=== PATIENT | female | born 1935 | race Caucasian/White ===

== ENCOUNTER 2020-08-27 12:40 | Emergency (ER) | payer OTHER, MEDICARE ==
--- OUTSIDE RECORDS SUMMARY | 2020-08-27 12:42 | XMS REPORT | Clinical Summary ---
:1935 Author Organization [facility] Address [address] [place] [id number] Care Team Providers Name Role Phone Crystal Albright PERSONAL LINES INSURANCE ADVISOR-C Primary Care Provider Allergies No Known Active Allergies Medications Medication Sig Dispensed Refills Start Date End Date Status PARoxetine (PAXIL) 10 0 01/20/2016 Active MG tablet galantamine (RAZADYNE) 0 12/21/2015 Active 12 MG tablet simvastatin (ZOCOR) 20 Take 20 mg by 0 Active MG tablet mouth nightly. lisinopril Take 20 mg by 0 Activ e (PRINIVIL,ZESTRIL) 20 mouth daily. MG tablet Active Problems Not on file Surgical History Surgery Date Site/Laterality Comments COLONOSCOPY 2014 HYSTERECTOMY BACK SURGERY KNEE SURGERY Medical History Medical History Date Comments Hypertension Hyperlipidemia Depressed Hearing difficulty Dementia (HCC) Rectal cancer (HCC) Social History Tobacco Use Types Packs/Day Years Used Date Never Smoker Alcohol Use Drinks/Week oz/Week Comments Yes 1 Glasses of wine 1.0 monthly Sex Assigned at Date Recorded Not on file Last Filed Vital Signs Not on file Plan of Treatment Health Maintenance Due Date Last Done Comments COVID-19 VACCINE (1 of 2) 1950 SHINGLES VACCINES (#1) 1984 65+ PNEUMOCOCCAL VACCINE (1 of 1 - PPSV23) 1999 INFLUENZA VACCINE 03/05/2020 Results Not on fileafter 08/27/2019 Insurance Payer Benefit Plan / Subscriber ID Effective Dates Phone Addre ss Type Group MEDICARE MEDICARE PART A [id number] 1999-Present DARLENE ALEGRE Medicare AND B AARP AARP SUPPLEMENT [id number] 1999-Present Commercial Advance Directives For more information, please contact: [phone] Type Date Recorded Patient Fabricating Machine Operator Explanati on Advance Directives, Living Will 04/29/2020 4:53 PM and Medical Power of Director Educational Radio
--- OUTSIDE RECORDS SUMMARY | 2020-08-27 12:43 | XMS REPORT | Continuity of Care Document ---
:1935 Author Organization [facility] t Address [address] [place] [address] Care Team Providers Name Role Phone Natalee Crystal SIMPSON Primary Care Physician Problems Condition Condition Condition Status Onset Resolution Last Treating Co mments Source Name Details Category Date Date Treatment Clinician Date Depression Depression Problem Active [facility] Hyperlipid Hyperlipid Problem Active [facility] HTN HTN Problem Active [facility]hypert[facility]hypertens Alexa kes - ion) ion) [facility] Osteopenia Osteopenia Problem Active [facility] Memory Memory Problem Active [facility] deficits deficits [facility] Allergies, Adverse Reactions, Alerts This patient has no known allergies or adverse reactions. Social History Social Habit Start Date Stop Date Quantity Comments Source Sex Assigned At [facility] ethodi Alcohol intake 2016-03-06 2016-03-06 Current drinker [place] [facility] 00:00:00 00:00:00 of alcohol (finding) Alcohol Comment 2016-03-06 2016-03-06 monthly [facility] ethodist 00:00:00 00:00:00 Smoking Status Start Date Stop Date Source Never smoker [facility] Medications Ordered Filled Start Stop Current Ordering Indication Dosage Frequency Signature Comments Components Source Medication Medication Date Date Medication? Clinician (SIG) Name Name Lisinopril Lisinopril 2017-08 Yes Allie Albright [address] [facility]12 [facility] Multivitami Multivitami 2017-08 Yes Allie Albright as [facility] Adult n Adult 0-12 directed [facility] Alprazolam Alprazolam 2017-08 Yes Allie Durham [address] [facility] Vitamin D-3 Vitamin D-3 2017-08 Yes Allie Durham [address] [facility] 0[facility]12 [facility] Galantamine Galantamine 2017-08 Yes Allie Durham [address] [facility] Hydrobromid Hydrobromid 0-12 with meals [facility] Simvastatin Simvastatin 2017-08 Yes Allie Trinhok [address] [facility] 0-12 in the [facility] evening [facility] Sulfasalazi Sulfasalazi 2017-08 Yes Allie Albright [address] [facility] ne ne 0-12 [facility] Tramadol Tramadol 2017-08 Yes Allie Albright [address] [facility] HCl HCl 0-12 as needed [facility] simvastatin Yes 20mg QD Take 20 mg [place] (ZOCOR) 20 802 by mouth Metho di MG tablet 13:58: nightly. st 15 lisinopril Yes 20mg QD Take 20 mg [place] (PRINIVIL,Z 8-02 by mouth Meth gladis ESTRIL) 20 13:58: daily. st MG tablet 15 PARoxetine Yes [place] (PAXIL) 10 6-17 [facility] MG tablet 00:00: st 00 galantamine Yes [place] (RAZADYNE) 5-18 [facility] 12 MG 00:00: st tablet 00 Cephalexin Cephalexin Yes Allie Albright TK [address] [facility] Q 8 HOURS [facility] FOR 10 [facility] l [facility] Divalproex Divalproex Yes Allie Albright as [facility] Sodium Sodium directed [facility] Acetaminoph Acetaminoph Yes Allie Albright (Schedule [facility] en-Codeine en-Codeine III Drug) [facility] - #3 #3 TK 2 TS PO [facility] Q 6 HOURS l NEEDED Outpati FOR PAIN ent Clinics Procedures This patient has no known procedures. Plan of Care Planned Activity Planned Date Details Comments Source Future Scheduled 2020-03-05 INFLUENZA VACCINE [place] [facility] 00:00:00 [code = INFLUENZA VACCINE] Future Scheduled 1999 65+ PNEUMOCOCCAL [place] [facility] 00:00:00 VACCINE (1 of 1 - PPSV23) [code = 65+ PNEUMOCOCCAL VACCINE (1 of 1 - PPSV23)] Future Scheduled 1984 [facility] [code = SHINGLES VACCINES (#1)] Future Scheduled 1950 COVID-19 VACCINE (1 of [place] [facility] 00:00:00 2) [code = COVID-19 VACCINE (1 of 2)] Encounters Start End Encounter Admission Attending Care Care Encounter Source Date/Time Date/Time Type Type Clinicians Facility Department ID 2018-05-16 2018-05-16 Outpatient [facility] Adant [id number] [facility] 10[facility]00[facility]00 10[facility]00[facility]00 [facility] Medicine Outpati ent Clinics Results This patient has no known results.
[2020-08-27 13:23] LABS: Absolute Lymphocytes (CBC) 1.7 K/uL (0.7-4.9); Basophils % 0.5 % (0-1.3); Lymphocytes % 29.2 % (15.3-44.8); MPV 7.6 fL (7.6-11.3); RBC Red Blood Cell Count 4.14 M/uL (3.86-4.86)
[2020-08-27 13:34] LABS: BUN Blood Urea Nitrogen 13 mg/dL (7-18); Bicarbonate 29 mmol/L (21-32); Glucose Level 102 mg/dL (74-106); Magnesium 2.3 mg/dL (1.8-2.4); NT PRO-BNP 104 pg/mL (<450); Potassium 3.9 mmol/L (3.5-5.1); Sodium Level 143 mmol/L (136-145); Troponin (Emerg Dept Use Only) < 0.02 ng/mL (0.0-0.045)
--- NOTE | 2020-08-27 13:51 | RAD REPORT ---
EXAM DESCRIPTION: Mimi Single View08/27/2020 1:27 pm CLINICAL HISTORY: Shortness of breath COMPARISON: 2017 FINDINGS: Mild bilateral pulmonary opacities. Heart is upper limits normal size. Patient is in a poo r degree of inspiration IMPRESSION: Mild bilateral interstitial pulmonary opacities may represent mild interstitial pulmonar y edema
[2020-08-27 14:09] LABS: SARS-COV-2 RT PCR NEGATIVE (NEGATIVE)
--- NOTE | 2020-08-27 14:37 | RAD REPORT ---
EXAM DESCRIPTION: CT - Chest For Pe Angio - 08/27/2020 2:17 pm CLINICAL HISTORY: sob COMPARISON: 2016 TECHNIQUE: Dynamically enhanced axial 3 mm thick images of the chest were obtained during administra tion of <100> mL Isovue 370 IV contrast. Coronal and oblique reconstruction images were generated and reviewed. Exam utilizes a protocol for optimal evaluation of pulmonary arterial tree. Maximum intensity projections 3D imaging was utilized All CT scans are performed using dose optimization technique as appropriate and may include automated exposure control or mA/KV adjustment according to patient size. FINDINGS: A pulmonary embolus is not seen. A thoracic aortic aneurysm is not noted. A pleural effusion is not seen. A pericardial effusion is not seen. A lung consolidation is not present. IMPRESSION: Negative for a pulmonary embolism.
--- NOTE | 2020-08-27 15:32 | EDPHYS ---
Physician Documentation [facility] Name: Rosina Lin Age: 84 yrs Sex: Female : 1935 Arrival Date: 08/27/2020 Time: 12:45 Bed 24 Private MD: ED Physician Jey Klein HPI: 08/27 13:12 This 84 yrs old Female presents to ER via EMS with complaints of Breathing rn Difficulty. 13:12 The patient has shortness of breath at rest. Onset: The symptoms/episode began/occurred rn just prior to arrival. Duration: The symptoms single episode. The patient's shortness of breath is aggravated by nothing, is alleviated by nebulizer treatment. Associated signs and symptoms: Pertinent positives: This patient does not have any pertinent positive signs or symptoms associated with shortness of breath. Pertinent negatives: chest pain, non-productive cough, productive cough, diaphoresis, dizziness, fever, hemoptysis, loss of consciousness, vomiting. Severity of symptoms: At their worst the symptoms were moderate in the emergency department the symptoms have resolved. The patient has not experienced similar symptoms in the past. Reports assisted living facility, thinks was working on puzzle or something, began to feel like couldn't take a deep breath, called for help, EMS arrived and was tachypneic, tachycardic, shallow breathing, given albuterol for shallow breathing, and by time arrived here, symptoms had resolved. Pt denies chest pain. Does not know what happened. Currently asymptomatic. Denies recent illness/cough/chest pain/abd pain/vomiting/diarrhea/trauma. . Historical: - Allergies: 12:57 promethazine HCl; hallucination; zb - Home Meds: 12:57 alprazolam 0.25 mg Oral tab 1 tab [Active]; lisinopril 20 mg Oral tab 1 tab once daily zb [Active]; simvastatin 10 mg Oral tab 1 tab once daily [Active]; divalproex 250 mg oral Tb24 2 tabs once daily [Active]; galantamine 12 mg Oral tab 1 tab 2 times per day [Active]; sulfasalazine 500 mg Oral tab 2 tab twice a day [Active]; alprazolam 0.25 mg Oral tab 2 tabs [Active]; acetaminophen 500 mg Oral tab [Active]; Cerovite Senior oral tab [Active]; Vitamin D Oral [Active]; - PMHx: 12:57 Dementia; Hypertension; zb - PSHx: 12:57 Hysterectomy; part of colon/rectum removed; Ileostomy and reversal; back surgery x3; zb - Immunization history:: Adult Immunizations up to date. - Social history:: Smoking status: unknown. - Family history:: not pertinent. - Hospitalizations: : No recent hospitalization is reported. ROS: 13:12 Constitutional: Negative for fever, chills, and weight loss, Eyes: Negative for injury, rn pain, redness, and discharge, Neck: Negative for injury, pain, and swelling, Cardiovascular: Negative for edema Respiratory: Negative for cough, wheezing, and pleuritic chest pain, Abdomen/GI: Negative for abdominal pain, nausea, vomiting, diarrhea, and constipation, Back: Negative for injury and pain, MS/Extremity: Negative for injury and deformity, Skin: Negative for injury, rash, and discoloration, Neuro: Negative for headache, weakness, numbness, tingling, and seizure. Exam: 13:12 Constitutional: This is a well developed, well nourished patient who is awake, alert, rn and in no acute distress. Head/Face: Normocephalic, atraumatic. Eyes: Pupils equal round and reactive to light, extra-ocular motions intact. Lids and lashes normal. Conjunctiva and sclera are non-icteric and not injected. Cornea within normal limits. Periorbital areas with no swelling, redness, or edema. ENT: MMM, no stridor Cardiovascular: Tachycardic, regular Respiratory: No increased work of breathing, no retractions or nasal flaring. Clear bilateral breath sounds. Abdomen/GI: soft, non-tender Skin: Warm, dry MS/ Extremity: Pulses equal, no cyanosis. Neurovascular intact. Full, normal range of motion. Equal circumference. Neuro: Awake and alert, GCS 15. Cranial nerves II-XII grossly intact. Motor strength 5/5 in all extremities. Sensory grossly intact. Cerebellar exam normal. Vital Signs: 12:45 BP 125 / 69; Pulse 103; Resp 20; Temp 98.3; Pulse Ox 98% on R/A; Weight 63.5 kg; Height zb 4 ft. 11 in. (149.86 cm); Pain 0/10; 14:00 BP 122 / 62; Pulse 80; Resp 16; Pulse Ox 100% on R/A; zb 15:00 BP 153 / 77; Pulse 93; Resp 18; Pulse Ox 100% on R/A; zb 15:57 BP 121 / 66; Pulse 90; Resp 16; Pulse Ox 100% on R/A; zb 12:45 Body Mass Index 28.28 (63.50 kg, 149.86 cm) zb MDM: 12:47 Patient medically screened. rn 12:55 ED course: Symptoms have resolved prior to arrival.. rn 15:26 Differential diagnosis: Anemia Anxiety Reaction Bronchitis Myocardial Infarction rn Pneumothorax pulmonary edema, Pulmonary Embolism COVID, flu. Data reviewed: vital signs, nurses notes, lab test result(s), EKG, radiologic studies, and as a result, I will discharge patient. 15:30 Counseling: I had a detailed discussion with the patient and/or guardian regarding: the rn historical points, exam findings, and any diagnostic results supporting the discharge/admit diagnosis, lab results, radiology results, the need for outpatient follow up, to return to the emergency department if symptoms worsen or persist or if there are any questions or concerns that arise at home. Special discussion: I discussed with the patient/guardian in detail that at this point there is no indication for admission to the hospital. It is understood, however, that if the symptoms persist or worsen the patient needs to return immediately for re-evaluation. ED course: Pt asymptomatic since arrival, no oxygen requirement, has been requesting to leave, spoke with daughter, will dc home with return precautions. . 08/27 12:54 Order name: Basic Metabolic Panel rn 08/27 12:54 Order name: CBC with Diff; Complete Time: 13:29 rn 08/27 12:54 Order name: Magnesium; Complete Time: 13:51 rn 08/27 12:54 Order name: NT PRO-BNP; Complete Time: 13:51 rn 08/27 12:54 Order name: Troponin (emerg Dept Use Only); Complete Time: 13:51 rn 08/27 12:54 Order name: XRAY Chest (1 view); Complete Time: 14:20 rn 08/27 12:54 Order name: Procalcitonin; Complete Time: 14:57 rn 08/27 12:55 Order name: Basic Metabolic Panel; Complete Time: 13:50 EDMS 08/27 13:33 Order name: LAB Add On eb 08/27 13:36 Order name: D-Dimer; Complete Time: 13:51 EDOK 08/27 13:51 Order name: CT Chest For PE Angio; Complete Time: 14:57 rn 08/27 14:09 Order name: COVID-19/FLU A+B; Complete Time: 14:20 EDOK 08/27 12:54 Order name: EKG; Complete Time: 12:56 rn 08/27 12:54 Order name: Cardiac monitoring; Complete Time: 13:12 rn 08/27 12:54 Order name: EKG - Nurse/Tech; Complete Time: 13:12 rn 08/27 12:54 Order name: IV Saline Lock; Complete Time: 13:12 rn 08/27 12:54 Order name: Labs collected and sent; Complete Time: 13:12 rn 08/27 12:54 Order name: O2 Per Protocol; Complete Time: 13:12 rn 08/27 12:54 Order name: O2 Sat Monitoring; Complete Time: 13:12 rn Administered Medications: No medications were administered Disposition: 08/27/20 15:32 Discharged to Home. Impression: Dyspnea, unspecified. - Condition is Stable. - Discharge Instructions: Shortness of Breath. - Medication Reconciliation Form, Thank You Letter, Antibiotic Education, Prescription Opioid Use form. - Follow up: Private Physician; When: As needed; Reason: Recheck today's complaints, Re-evaluation by your physician. - Problem is new. - Symptoms are resolved. Signatures: Dispatcher [employer] [facility] Jey Klein MD MD rn Brown, Zipporah, RN RN zb Corrections: (The following items were deleted from the chart) 13:26 12:55 CORONAVIRUS+MR.LAB.BRZ ordered. [facility] 13:48 12:55 Influenza Screen (A \T\ B)+BA.LAB.BRZ ordered. [facility] 15:58 15:32 08/27/2020 15:32 Discharged to Home. Impression: Dyspnea, unspecified. Condition zb is Stable. Forms are Medication Reconciliation Form, Thank You Letter, Antibiotic Education, Prescription Opioid Use. Follow up: Private Physician; When: As needed; Reason: Recheck today's complaints, Re-evaluation by your physician. Problem is new. Symptoms are resolved. rn
--- NOTE | 2020-08-27 15:32 | ER ---
Nurse's Notes [facility] Name: Rosina Lin Age: 84 yrs Sex: Female : 1935 Arrival Date: 08/27/2020 Time: 12:45 Bed 24 Private MD: Diagnosis: Dyspnea, unspecified Presentation: 08/27 12:45 Chief complaint: EMS states: patient found in chair at intermediate , hyperventating, zb shallow breathing states that she could not breath. blood pressure and heart rate where elevated. initial RR in the 40's, blood pressure 190/100, tachypneic. After 1 treatment with albuterol blood pressure decreased, RR in 20's, heart rate decreased. no fever, no covid sx. Coronavirus screen: At this time, the client does not indicate any symptoms associated with coronavirus-19. Ebola Screen: No symptoms or risks identified at this time. Initial Sepsis Screen: Does the patient meet any 2 criteria? No. Patient's initial sepsis screen is negative. Does the patient have a suspected source of infection? No. Patient's initial sepsis screen is negative. Risk Assessment: Do you want to hurt yourself or someone else? Patient reports no desire to harm self or others. Onset of symptoms was August 27, 2020. 12:45 Method Of Arrival: EMS: [facility] zb 12:45 Acuity: TATYANA 3 zb Triage Assessment: 12:58 General: Appears in no apparent distress. comfortable, Behavior is calm, cooperative, zb appropriate for age, Denies fever, feeling ill, fatigue, chills. Pain: Denies pain. EENT: Nares with drainage noted Denies pain. Neuro: Level of Consciousness is awake, alert, obeys commands, Oriented to person, place, time, situation. Cardiovascular: Heart tones S1 S2 present Capillary refill < 3 seconds in bilateral fingers Patient's skin is warm and dry. Respiratory: Reports report SOB earlier. Airway is patent Respiratory effort is even, unlabored, Respiratory pattern is regular, symmetrical, Onset: The symptoms/episode began/occurred today, the patient reports symptoms have resolved. GI: No signs and/or symptoms were reported involving the gastrointestinal system. : No signs and/or symptoms were reported regarding the genitourinary system. Derm: Skin is intact, is healthy with good turgor, Skin is dry, Skin is normal, Skin temperature is warm. Musculoskeletal: Circulation, motion, and sensation intact. Capillary refill < 3 seconds, in bilateral fingers. Range of motion: intact in all extremities. Historical: - Allergies: 12:57 promethazine HCl; hallucination; zb - Home Meds: 12:57 alprazolam 0.25 mg Oral tab 1 tab [Active]; lisinopril 20 mg Oral tab 1 tab once daily zb [Active]; simvastatin 10 mg Oral tab 1 tab once daily [Active]; divalproex 250 mg oral Tb24 2 tabs once daily [Active]; galantamine 12 mg Oral tab 1 tab 2 times per day [Active]; sulfasalazine 500 mg Oral tab 2 tab twice a day [Active]; alprazolam 0.25 mg Oral tab 2 tabs [Active]; acetaminophen 500 mg Oral tab [Active]; Cerovite Senior oral tab [Active]; Vitamin D Oral [Active]; - PMHx: 12:57 Dementia; Hypertension; zb - PSHx: 12:57 Hysterectomy; part of colon/rectum removed; Ileostomy and reversal; back surgery x3; zb - Immunization history:: Adult Immunizations up to date. - Social history:: Smoking status: unknown. - Family history:: not pertinent. - Hospitalizations: : No recent hospitalization is reported. Screenin:03 Abuse screen: Denies threats or abuse. Denies injuries from another. Nutritional zb screening: No deficits noted. Tuberculosis screening: No symptoms or risk factors identified. Fall Risk No fall in past 12 months (0 pts). Secondary diagnosis (15 points) dementia, IV access (20 points). Ambulatory Aid- Crutches/Cane/Walker (15 pts). Gait- Normal/Bed Rest/Wheelchair (0 pts) Mental Status- Oriented to own ability (0 pts). Total Jiménez Fall Scale indicates High Risk Score (45 or more points). Fall prevention measures have been instituted. Side Rails Up X 2 Placed Close to Nursing Station Frequent Obs/Assessments Occuring As available patient and family educated on Fall Prevention Program and Strategies. Assessment: 13:00 Reassessment: see triage notes. zb 13:03 Cardiovascular: Rhythm is sinus rhythm. Respiratory: Airway is patent Respiratory zb effort is even, unlabored, Respiratory pattern is regular, symmetrical, Breath sounds are clear bilaterally. 14:00 Reassessment: Patient appears in no apparent distress at this time. Patient and/or zb family updated on plan of care and expected duration. Pain level reassessed. patient ambulates to restroom. up ad ty. 15:00 Reassessment: Patient appears in no apparent distress at this time. Patient and/or zb family updated on plan of care and expected duration. Pain level reassessed. no c/o of pain. no difficulty breathing. 15:23 Reassessment: ECP at bedside discussing care. zb 15:55 Reassessment: Patient appears in no apparent distress at this time. Patient and/or zb family updated on plan of care and expected duration. Pain level reassessed. Patient is alert, oriented x 3, equal unlabored respirations, skin warm/dry/pink. pt ambulatory and ready to go. Vital Signs: 12:45 BP 125 / 69; Pulse 103; Resp 20; Temp 98.3; Pulse Ox 98% on R/A; Weight 63.5 kg; Height zb 4 ft. 11 in. (149.86 cm); Pain 0/10; 14:00 BP 122 / 62; Pulse 80; Resp 16; Pulse Ox 100% on R/A; zb 15:00 BP 153 / 77; Pulse 93; Resp 18; Pulse Ox 100% on R/A; zb 15:57 BP 121 / 66; Pulse 90; Resp 16; Pulse Ox 100% on R/A; zb 12:45 Body Mass Index 28.28 (63.50 kg, 149.86 cm) zb ED Course: 12:45 Patient arrived in ED. zb 12:47 Jey Klein MD is Attending Physician. rn 12:53 Triage completed. zb 13:01 Arm band placed on right wrist. EKG completed in triage. Results shown to MD. zb 13:02 Patient has correct armband on for positive identification. Placed in gown. Bed in low zb position. personnel monitor on. Pulse ox on. NIBP on. Door closed. Noise minimized. Warm blanket given. 13:27 XRAY Chest (1 view) In Process Unspecified. EDMS 14:22 CT Chest For PE Angio In Process Unspecified. EDMS 15:22 Marla Diallo, RN is Primary Nurse. zb 15:56 No provider procedures requiring assistance completed. IV discontinued, intact, zb bleeding controlled, No redness/swelling at site. Pressure dressing applied. Administered Medications: No medications were administered Outcome: 15:32 Discharge ordered by . rn 15:56 Discharged to home ambulatory. zb 15:56 Condition: stable 15:56 Discharge instructions given to patient, Instructed on discharge instructions, follow up and referral plans. Demonstrated understanding of instructions, follow-up care. 15:58 Patient left the ED. zb Signatures: Dispatcher [employer] EDMS Jey Klein MD MD rn Brown, Zipporah, RN RN zb
[2020-08-27 16:12] VITALS: TEMP 98.3; O2SAT 100
[2020-08-27 16:17] VITALS: BP 121/66
== END 2020-08-27 15:58 | disposition home or self-care (01) ==
LOC: ER 12:40
DX: R06.00 Dyspnea, unspecified (principal); Z20.822 Contact with and (suspected) exposure to COVID-19; I10 Essential (primary) hypertension; F03.90 Unspecified dementia, unspecified severity, without behavioral disturbance, psychotic disturbance, mood disturbance, and anxiety; Z88.8 Allergy status to other drugs, medicaments and biological substances
CPT/HCPCS: 93005; 85025; 80048; 36415; 83735; 85379; 84484; 84145; 83880; 0240U; 71275; 71045; 99284; Q9967